=== PATIENT | female | born 1990 | race African-American/Black ===

== ENCOUNTER 2022-05-20 18:07 | Emergency (ER) | payer OTHER ==
[2022-05-20 19:06] VITALS: BP 162/96; PULSE 89; RESP 18; TEMP 98.5; BMI 32.0
[2022-05-20] MEDS ORDERED: KETOROLAC TROMETHAMINE 30 MG/1 ML VIAL IM ONE (19:56)
[2022-05-20] MEDS ORDERED: METHOCARBAMOL 500 MG TABLET PO ONE (19:56)
[2022-05-20] MEDS ORDERED: METHOCARBAMOL 500 MG TABLET ONE (20:00)
[2022-05-20] MEDS ORDERED: KETOROLAC TROMETHAMINE 30 MG/1 ML VIAL ONE ×2 (20:00→20:04)
== END 2022-05-20 21:07 | disposition home or self-care (01) ==
LOC: JERFT 18:07
PROC: 3E0233Z Introduction of Anti-inflammatory into Muscle, Percutaneous Approach (ICD-10-PCS; principal; 2022-05-20)
DX: M54.2 Cervicalgia (principal); V89.2XXA Person injured in unspecified motor-vehicle accident, traffic, initial encounter; Y92.9 Unspecified place or not applicable
CPT/HCPCS: 99283-25